=== PATIENT | female | born 1945 | race Caucasian/White ===

== ENCOUNTER 2021-11-07 09:43 | Outpatient (CLI) | payer MEDICARE, SELFPAY ==
[2021-11-07 13:42] LABS: Chloride* 105 mmol/L (96-114); Potassium* 4.7 mmol/L (3.6-5.1); Sodium* 140 mmol/L (135-149)
[2021-11-07 13:45] LABS: Blood Urea Nitrogen* 18 mg/dL (7-30); Carbon Dioxide* 24 mmol/L (20-32); Cholesterol* 192 mg/dL (90-199); Creatinine* 0.9 mg/dL (0.5-1.5); Estimated Glomerular Filt Rate 66 ml/min; Glucose* 96 mg/dL (60-115)
[2021-11-07 13:46] LABS: Calcium* 9.6 mg/dL (8.4-10.6); HDL Cholesterol* 51 mg/dL (>=50); LDL Cholesterol Calculated 107 mg/dL (<100); Triglycerides* 169 mg/dL (40-149)
== END 2021-11-07 09:44 | disposition home or self-care (01) ==
PROVIDERS: PCP Family Medicine; Visit Provider Family Medicine
DX: I10 Essential (primary) hypertension (principal); E78.5 Hyperlipidemia, unspecified; E03.9 Hypothyroidism, unspecified; N32.89 Other specified disorders of bladder; Z96.653 Presence of artificial knee joint, bilateral
CPT/HCPCS: 80048; 80061; 84443

== ENCOUNTER 2021-12-12 12:47 | Outpatient (CLI) | payer MEDICARE, SELFPAY ==
--- NOTE | 2021-12-12 13:00 | CRLHL7_ITS ---
For Patients: As a result of the Century Cures Act, medical imaging exams and procedure reports are released immediately into your electronic medical record. You may view this report before your referring provider. If you have questions, please contact your health care provider. BILATERAL SCREENING MAMMOGRAM WITH COMPUTER-AIDED DETECTION AND TOMOSYNTHESIS TECHNIQUE: CC and MLO views were obtained. These mammographic images have been obtained using full-field digital technique. These mammographic images were interpreted with the benefit of computer-aided detection. Breast Tomosynthesis was used in this interpretation. COMPARISON FILM: 12/11/20, 11/02/19, 10/29/18. FINDINGS: The breasts are heterogeneously dense, which may obscure small masses IMPRESSION: There is no radiographic evidence for malignancy. ASSESSMENT: BI-RADS Category 2: Benign RECOMMENDATION: Routine screening mammogram in 1 year. A lay language report of this examination will be provided to the patient. Nithin Montiel M.D. Diagnostic Radiologist [email or web address] SHEYLA/Dictated by: Nithin Montiel MD @ 12/13/2021 1:06:00 PM (Electronically Signed)
== END 2021-12-12 12:48 | disposition home or self-care (01) ==
PROVIDERS: PCP Family Medicine; Visit Provider Family Medicine
DX: Z12.31 Encounter for screening mammogram for malignant neoplasm of breast (principal)
CPT/HCPCS: 77063; 77067

== ENCOUNTER 2022-11-22 10:42 | Outpatient (CLI) | payer MEDICARE, SELFPAY | END 2022-11-22 10:43 | disposition home or self-care (01) | PROVIDERS: PCP Family Medicine; Visit Provider Family Medicine | DX: Z00.00 Encounter for general adult medical examination without abnormal findings (principal); I10 Essential (primary) hypertension; E78.5 Hyperlipidemia, unspecified; E03.9 Hypothyroidism, unspecified | CPT/HCPCS: 80048; 80061; 84443 ==

== ENCOUNTER 2022-12-19 08:55 | Outpatient (CLI) | payer MEDICARE, SELFPAY ==
--- NOTE | 2022-12-19 09:15 | CRLHL7_ITS ---
For Patients: As a result of the Century Cures Act, medical imaging exams and procedure reports are released immediately into your electronic medical record. You may view this report before your referring provider. If you have questions, please contact your health care provider. BILATERAL SCREENING MAMMOGRAM WITH COMPUTER-AIDED DETECTION AND TOMOSYNTHESIS TECHNIQUE: CC and MLO views were obtained. These mammographic images have been obtained using full-field digital technique. These mammographic images were interpreted with the benefit of computer-aided detection. Breast Tomosynthesis was used in this interpretation. COMPARISON FILM: 12/11/20, 11/02/19, 10/29/2018 FINDINGS: There are scattered areas of fibroglandular density IMPRESSION: There is no radiographic evidence for malignancy. ASSESSMENT: BI-RADS Category 2: Benign RECOMMENDATION: Routine screening mammogram in 1 year. A lay language report of this examination will be provided to the patient. Nithin Montiel M.D. Diagnostic Radiologist [email or web address] Transcribed: 2:47 p.[email or web address] rios/Dictated by: Nithin Montiel MD @ 12/19/2022 12:31:00 PM (Electronically Signed)
== END 2022-12-19 08:56 | disposition home or self-care (01) ==
LOC: MAMMO 08:56
PROVIDERS: PCP Family Medicine; Visit Provider Family Medicine
DX: Z12.31 Encounter for screening mammogram for malignant neoplasm of breast (principal)
CPT/HCPCS: 77063; 77067

== ENCOUNTER 2023-12-15 09:59 | Outpatient (CLI) | payer MEDICARE, SELFPAY | END 2023-12-15 10:00 | disposition home or self-care (01) | PROVIDERS: PCP Family Medicine; Visit Provider Family Medicine | DX: E78.00 Pure hypercholesterolemia, unspecified (principal); I10 Essential (primary) hypertension; E89.0 Postprocedural hypothyroidism | CPT/HCPCS: 80048; 80061; 84439; 84443 ==

== ENCOUNTER 2024-10-12 13:27 | Outpatient (CLI) | payer MEDICARE, SELFPAY | END 2024-10-12 13:28 | disposition home or self-care (01) | PROVIDERS: PCP Family Medicine; Visit Provider Family Medicine | DX: I10 Essential (primary) hypertension (principal); E78.5 Hyperlipidemia, unspecified; E03.9 Hypothyroidism, unspecified | CPT/HCPCS: 80048; 80061; 84443 ==

== ENCOUNTER 2024-11-22 14:55 | Outpatient (CLI) | payer MEDICARE, SELFPAY ==
--- NOTE | 2024-11-22 15:00 | CRLHL7_ITS ---
For Patients: As a result of the Century Cures Act, medical imaging exams and procedure reports are released immediately into your electronic medical record. You may view this report before your referring provider. If you have questions, please contact your health care provider. Indication: DYSPNEA Technique: CT Chest W/ 85CC ISOVUE 370 intravenous contrast Please note that all CT scans at this facility use dose modulation, iterative reconstruction, and/or weight-based dosing when appropriate to reduce radiation dose to as low as reasonably achievable. Comparison: Chest x-ray 10/12/2024 Findings: Innumerable calcified granulomas within the spleen. Small blush of contrast within the left hepatic lobe measures 6 millimeters most compatible with incidental hemangioma. Sub cm nodule within the right thyroid lobe. Incidental pericardial recess. Densely calcified subcarinal lymph node. Calcified right hilar lymph node. Calcified granuloma within the right perihilar lung. Small hiatal hernia. Glenohumeral degenerative joint disease. 5.3 millimeter subpleural nodule left lower lobe, 4/72. 3.3 millimeter nodule left lower lobe, 4/63. 3.6 millimeter nodule right lower lobe, 4/64. 4.9 millimeter subpleural nodule right lower lobe, 4/80. 2.5 millimeter nodule right middle lobe, 4/72. Right apical nodule measures 3.7 millimeters, 4/18. No acute infiltrate. No CHF. No pleural effusion or pneumothorax. Mild areas of scarring. No fibrosis. Multilevel discogenic spurring. No fracture. Impression: Mild areas of scarring. No infiltrate or fibrosis. Small bilateral pulmonary nodules measure up to 5.3 millimeters. Optional 1 year follow-up. Sequela of granulomatous disease. Incidental sub cm intrahepatic hemangioma. Small hiatal hernia. Please note that all CT scans at this facility use dose modulation, iterative reconstruction, and/or weight-based dosing when appropriate to reduce radiation dose to as low as reasonably achievable. Dictated by Nithin Montiel MD @ 11/23/2024 9:26:12 AM (Electronically Signed)
--- NOTE | 2024-11-22 15:30 | CRLHL7_ITS ---
For Patients: As a result of the Cures Act, medical imaging exams and procedure reports are released immediately into your electronic medical record. You may view this report before your referring provider. If you have questions, please contact your health care provider. INDICATION: Dyspnea. Partial thyroidectomy. COMPARISON: None. TECHNIQUE: CT soft tissue neck with IV contrast. Isovue 370, 85 cc IV. FINDINGS: Normal bilateral parotid and submandibular glands. Postoperative changes of left thyroidectomy. Low attenuation nodularity within the residual right thyroid lobe. No enlarged cervical lymph nodes bilaterally. No supraclavicular superior mediastinal adenopathy. Nasopharynx and oropharynx are clear. No inflammation within the paravertebral fat pads or retropharyngeal space. Normal thickness of the epiglottis. Asymmetric enlargement of the left sub lingual tonsil partial effacement of the left vallecula. Normal glottis with symmetric vocal cords. Airway is patent. Lung apices are clear. Normal alignment of the cervical spine. Cervical spondylosis. No prevertebral soft tissue swelling. Visualized paranasal sinuses and mastoid air cells are clear. IMPRESSION: 1. No adenopathy. 2. Postoperative changes of left thyroidectomy. Low-attenuation nodularity of the residual right thyroid lobe. 3. No adenopathy 4. Cervical spondylosis. No prevertebral soft tissue swelling Please note that all CT scans at this facility use dose modulation, iterative reconstruction, and/or weight-based dosing when appropriate to reduce radiation dose to as low as reasonably achievable. Dictated by Chau Skaggs MD @ 11/23/2024 12:23:42 PM (Electronically Signed)
[2024-11-22 15:57] LABS: Creatinine* 0.8 mg/dL (0.5-1.5); Estimated Glomerular Filt Rate 74 ml/min
== END 2024-11-22 14:56 | disposition home or self-care (01) ==
LOC: CT 14:56
PROVIDERS: PCP Family Medicine; Visit Provider Otolaryngology
DX: R06.00 Dyspnea, unspecified (principal); M47.892 Other spondylosis, cervical region; R91.8 Other nonspecific abnormal finding of lung field; D18.09 Hemangioma of other sites; K44.9 Diaphragmatic hernia without obstruction or gangrene
CPT/HCPCS: 36415; 70491; 71260; 82565; Q9967

== ENCOUNTER 2024-12-07 14:40 | Outpatient (CLI) | payer MEDICARE, SELFPAY ==
--- NOTE | 2024-12-07 14:30 | CRLHL7_ITS ---
For Patients: As a result of the 21st Century Cures Act, medical imaging exams and procedure reports are released immediately into your electronic medical record. You may view this report before your referring provider. If you have questions, please contact your health care provider. Indication: Dysphonia, concern for mass Technique: Multiplanar, multisequence MRI of the brain obtained without and with contrast. A total of 15 mL of Dotarem IV contrast was administered. Comparison: CT neck 11/22/2024 Findings: Heterogeneous T1/T2 intermediate, FLAIR hyperintense, mass centered at the expanded left jugular fossa, demonstrating avid enhancement and serpiginous internal flow voids. It measures approximately 2.1 x 3.0 x 2.3 cm oblique AP/TR/CC, ventral margin encroaching upon the petrous carotid canal, superior margin abutting the floor of the internal auditory canal, with lobulated posteromedial protrusion into the cerebellopontine angle, slightly encroaching upon the left brachium pontis, without adjacent parenchymal edema. No evidence for recent hemorrhage or infarct. No midline shift, hydrocephalus or herniation. Ventricles and cortical sulci. Age-appropriate in configuration. Punctate foci of T2/FLAIR hyperintensity are scattered throughout the cerebral white matter and central keith, typical of chronic microangiopathy. A few punctate foci of parenchymal susceptibility artifact are noted, typical of chronic microangiopathy. Partially empty sella configuration. Preserved major intracranial arterial flow voids. No obstructive paranasal sinus disease or mastoid effusion. Unremarkable orbits. Impression: 1. 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 Surgical consultation advised. Dictated by Sienna Lee MD @ 12/08/2024 6:23:56 PM (Electronically Signed)
== END 2024-12-07 14:41 | disposition home or self-care (01) ==
LOC: MRI 14:41
PROVIDERS: PCP Family Medicine; Visit Provider Otolaryngology
DX: R49.0 Dysphonia (principal)
CPT/HCPCS: 70553; A9575